=== PATIENT | female | born 1985 | race Native Hawaiian/Other Pacific Islander ===

== ENCOUNTER 2017-03-15 19:17 | Inpatient (IN) | payer BC ==
[~2017-03-15] VITALS: Ht 160 cm; Wt 63.5 kg
--- NOTE | 2017-03-15 19:43 | NUR ---
PT BIB AMBULANCE FOLLOWING WITNESSED SEIZURE. PT HAS HX OF BRAIN TUMOR AND WAS RECIEVING RADIATION TODAY PER . FAMILY AT BEDSIDE.
[2017-03-15] MEDS ORDERED: LEVETIRACETAM IV 500 MG in IV DEXTROSE 5% 100 ML IV ONE (19:45)
[2017-03-15 20:23] LABS: BASOPHILS % (AUTO) 0.2 % (0.0-2.0); EOSINOPHILS % (AUTO) 0.2 % (0.0-7.0); HEMATOCRIT 38.9 % (31.2-41.9); LYMPHOCYTES # (AUTO) 0.6 K/uL (20.0-40.0); LYMPHOCYTES % (AUTO) 5.9 % (20.5-51.5); MEAN CORPUSCULAR HEMOGLOBIN 30.4 uug (24.7-32.8); MEAN CORPUSCULAR HGB CONC 34 g/dL (32.3-35.6); MEAN CORPUSCULAR VOLUME 90.9 fL (75.5-95.3); MONOCYTES # (AUTO) 0.4 K/uL (2.0-10.0); MONOCYTES % (AUTO) 4.4 % (0.0-11.0); NEUTROPHILS # (AUTO) 8.9 K/uL (1.8-8.9); NEUTROPHILS % (AUTO) 89.3 % (38.5-71.5); PLATELET COUNT (AUTO) 118 K/uL (179-408); RED BLOOD CELL COUNT(AUTO) 4.28 MIL/uL (3.63-4.92)
[2017-03-15 20:27] LABS: CREATININE 0.9 mg/dL (0.6-1.3)
[2017-03-15] MEDS ORDERED: LEVETIRACETAM 500 MG/5 ML VIAL IV ONE (20:33)
[2017-03-15] MEDS ORDERED: IV NORMAL SALINE 1000 ML BAG IV ONE ×2 (21:15→22:30)
--- NOTE | 2017-03-15 22:36 | NUR ---
pt taken to CT. VSS. no acute distress noted.
[2017-03-15 22:48] LABS: *URINE HCG, QUAL NEGATIVE (NEGATIVE)
--- NOTE | 2017-03-15 23:37 | NUR ---
Call placed to [facility], Dr. Jeong will be paged.
--- NOTE | 2017-03-16 00:03 | NUR ---
2nd call placed to [facility], Alexander Partida will be paged.
--- NOTE | 2017-03-16 00:05 | NUR ---
Pt resting w/ eyes closed. VSS. no acute signs of distress noted
--- NOTE | 2017-03-16 00:41 | NUR ---
Report given to KYRIE Tejeda.
--- NOTE | 2017-03-16 01:11 | NUR ---
Pt. admitted to tele, under care of Dr. Partida Belongs List completed
[2017-03-16 01:13] VITALS: BP 100/71
--- NOTE | 2017-03-16 01:15 | NUR ---
RECEIVED PATIENT TO [facility] FLOOR. VITAL SIGNS STABLE AT THIS TIME. DENIES PAIN, NO N/V. ASSISTED TO BATHROOM TO VOID. SEIZURE AND UNIVERSAL SAFETY PRECAUTIONS IMPLEMENTED.
[2017-03-16] MEDS ORDERED: IV NS 1000 ML 1,000 ML IV PRN (01:27)
[2017-03-16] MEDS ORDERED: HYDROCODONE/APAP 10-325 MG TABLET PO PRN (01:30)
[2017-03-16] MEDS ORDERED: ONDANSETRON 4 MG/2 ML VIAL IV PRN (01:30)
[2017-03-16] MEDS ORDERED: ACETAMINOPHEN 325 MG TABLET PO PRN (01:30)
[2017-03-16] MEDS ORDERED: DEXAMETHASONE SOD PHOSPHATE 10 MG INJ IV ONE (01:30)
[2017-03-16 04:00] VITALS: BP 76/43
[2017-03-16] MEDS ORDERED: ACETAMINOPHEN 325 MG TABLET ONE (04:26)
[2017-03-16 05:00] VITALS: BP 86/54
--- NOTE | 2017-03-16 06:38 | NUR ---
NO EPISODE OF SEIZURE LAST NIGHT. OFFERED PATIENT SEVERAL SNACKS SHE WAS VERY HUNGRY. NO ASPIRATION OR CHOKING NOTED. ABLE TO TOLERATE SOLIDS AND FLUIDS WELL. CONTINUE WITH SEIZURE PRECAUTIONS. SLEPT WELL LAST NIGHT.
[2017-03-16] MEDS ORDERED: DEXAMETHASONE SOD PHOSPHATE 4 MG INJ IV ONE (06:44)
[2017-03-16 07:11] LABS: EOSINOPHILS % (AUTO) 0.3 % (0.0-7.0); LYMPHOCYTES # (AUTO) 1.1 K/uL (20.0-40.0); MONOCYTES # (AUTO) 0.5 K/uL (2.0-10.0); PLATELET COUNT (AUTO) 102 K/uL (179-408); WHITE BLOOD COUNT (AUTO) 7.9 K/uL (3.8-11.8)
[2017-03-16] MEDS ORDERED: DEXAMETHASONE SOD PHOSPHATE 4 MG INJ ONE (07:12)
[2017-03-16 07:14] LABS: BILIRUBIN,TOTAL 0.3 mg/dL (0.2-1.0); CREATININE 0.7 mg/dL (0.6-1.3); MAGNESIUM 1.9 mg/dL (1.8-2.4); PHOSPHOROUS 2.8 mg/dL (2.5-4.9); POTASSIUM 3.4 mmol/L (3.5-5.1)
[2017-03-16 07:28] LABS: BASOPHILS % (AUTO) 0.1 % (0.0-2.0); HEMATOCRIT 33.4 % (31.2-41.9); HEMOGLOBIN 11.3 g/dL (10.9-14.3); LYMPHOCYTES % (AUTO) 13.8 % (20.5-51.5); MEAN CORPUSCULAR HEMOGLOBIN 30.7 uug (24.7-32.8); MEAN CORPUSCULAR HGB CONC 34 g/dL (32.3-35.6); MEAN CORPUSCULAR VOLUME 90.9 fL (75.5-95.3); MONOCYTES % (AUTO) 6.5 % (0.0-11.0); NEUTROPHILS # (AUTO) 6.3 K/uL (1.8-8.9); NEUTROPHILS % (AUTO) 79.3 % (38.5-71.5); RED BLOOD CELL COUNT(AUTO) 3.67 MIL/uL (3.63-4.92)
--- NOTE | 2017-03-16 07:35 | NUR ---
Received client in bed asleep in a supine position with the bed flat. No apparent signs and symptoms of SOB, pain, distress or discomfort. Bed at lowest position for safety and call light within reach for assistance. Padded side rails in place for seizure precautions. Client is also on tele.
[2017-03-16] MEDS ORDERED: DEXAMETHASONE SOD PHOSPHATE 4 MG INJ IV SCH (09:00)
[2017-03-16] MEDS ORDERED: LEVETIRACETAM IV 500 MG in IV DEXTROSE 5% 100 ML IV SCH (09:00)
[2017-03-16] MEDS ORDERED: OSIM40TA PO (10:42)
[2017-03-16] MEDS ORDERED: POTASSIUM CHLORIDE 20 MEQ TAB.PRT.SR PO ONE (11:00)
[2017-03-16 11:28] VITALS: BP 84/50
[2017-03-16] MEDS ORDERED: TAGRISSO PO SCH (11:30)
[2017-03-16] MEDS ORDERED: PATIENT MAY USE OWN MED- MD OK PO ONE (13:00)
--- NOTE | 2017-03-16 13:10 | NUR ---
URINE COLLECTED AND SENT TO LAB ORDERED
[2017-03-16 13:19] LABS: *BILIRUBIN,URIN NEGATIVE (NEGATIVE); *BLOOD, URINE NEGATIVE (NEGATIVE); *CLARITY,URINE CLEAR (CLEAR); *COLOR,URINE LIGHT YELLOW (YELLOW); *KETONES,URINE NEGATIVE (NEGATIVE); *PROTEIN,URINE NEGATIVE (NEGATIVE); *UROBILINOGEN,URINE 0.2 E.U./dl (NORMAL); LEUKOCYTE ESTERASE ,URINE NEGATIVE (NEGATIVE); NITRITE, URINE NEGATIVE (NEGATIVE); PH,URINE 5.5 (5.0-8.0); UGLUCOSE TRACE (NEGATIVE)
[2017-03-16 13:38] LABS: BACTERIA,URINE NONE SEEN /HPF (NONE SEEN); RBC,URINE 0-3 /HPF (0-3); SQUAMOUS EPITHELIAL CELL,UR MODERATE /HPF (NONE SEEN)
[2017-03-16] MEDS ORDERED: LEVE500T9 PO (15:13)
[2017-03-16 15:30] VITALS: BP 81/47
--- NOTE | 2017-03-16 16:45 | NUR ---
CLIENT WAS GUIDED TO LOBBY VIA WHEELCHAIR WHERE HER WAS WAITING FOR HER.LEFT VIA PRIVATE CAR. CLIENT LEFT WITH PERSONAL BELONGINGS, PRESCRIPTION AND PERSONAL HOME MEDICATION WITH HER. CLIENT WAS STABLE, NO SIGNS AND SYMPTOMS OF SEIZURES, PAIN, DISTRESS, DISCOMFORT OR SOB.
[2017-03-17] MEDS ORDERED: TAGRISSO PO SCH (06:30)
== END 2017-03-16 16:40 | disposition home or self-care (01) | DRG 100 ==
LOC: ER 19:17 → TELE 03-16 00:50 → EDBD 03-16 00:50 → MED 03-16 13:00
PROVIDERS: ADMIT Nurse Practitioner Acute Care; ATTEND Nurse Practitioner Acute Care
DX: G40.901 Epilepsy, unspecified, not intractable, with status epilepticus (principal); N17.0 Acute kidney failure with tubular necrosis; C71.9 Malignant neoplasm of brain, unspecified; C78.00 Secondary malignant neoplasm of unspecified lung; G93.89 Other specified disorders of brain; E44.1 Mild protein-calorie malnutrition; Z98.890 Other specified postprocedural states; Z92.3 Personal history of irradiation; Z68.24 Body mass index [BMI] 24.0-24.9, adult
CPT/HCPCS: 36415; 70450; 71045; 83735; 84100; 84703; 85025; 85730; 93005; A4663; J1100; J1953; J7030; J7060